=== PATIENT | female | born 1950 | race Caucasian/White ===

== ENCOUNTER → 2017-08-31 | Outpatient (CLI) | payer MEDICARE, OTHER ==
[~2017-08-31] MED LIST: AMITRIPTYLINE H50 M1 PO; CALCIUM 500500 M2 PO; FERROUS SU325 MG/TAB PO; FOLIC ACID PO; LISINOPRIL PO; MULTIPLE VITAMI1 CAP PO; NAPROXEN EC500 MG PO; PERCOCET 325 MG1 TA2 PO; PRILOSEC 20MG20 MG PO; SYNTHROID0.088 MG/T PO; SYNTHROID0.1 MG PO; TYLENOL 500MG500 MG PO; VITAMIN C500 MG PO; VITAMIN E1000 U/CAP PO; ZOCOR80 MG PO
== END ==
LOC: MC.RAD 08-26 09:00
DX: Z12.31 Encounter for screening mammogram for malignant neoplasm of breast (principal)

== ENCOUNTER 2017-10-08 05:29 | Emergency (ER) | payer MEDICARE, OTHER ==
[2008-11-01 06:23] VITALS: BP 110/63
[2017-10-08 05:38] VITALS: TEMP 97.6
[2017-10-08] MEDS ORDERED: FERRO-TIME325 MG PO (05:57)
[2017-10-08] MEDS ORDERED: EPA FISH OIL1 SGL PO (05:57)
[2017-10-08] MEDS ORDERED: NORCO 325 MG-51 TAB PO (07:41)
[2017-10-08 08:13] VITALS: BP 142/94; PULSE 87
== END 2017-10-08 08:19 | disposition home or self-care (01) ==
LOC: COL.ER 05:29
DX: S82.141A Displaced bicondylar fracture of right tibia, initial encounter for closed fracture (principal); S82.831A Other fracture of upper and lower end of right fibula, initial encounter for closed fracture; Z96.641 Presence of right artificial hip joint; W18.30XA Fall on same level, unspecified, initial encounter; X50.1XXA Overexertion from prolonged static or awkward postures, initial encounter; Y92.009 Unspecified place in unspecified non-institutional (private) residence as the place of occurrence of the external cause; I10 Essential (primary) hypertension; E03.9 Hypothyroidism, unspecified; E78.5 Hyperlipidemia, unspecified; K21.9 Gastro-esophageal reflux disease without esophagitis
CPT/HCPCS: J1170; J1885; J2765; L1830

== ENCOUNTER → 2018-01-21 | Outpatient (CLI) | payer MEDICARE, OTHER ==
[~2018-01-21] MED LIST changes: +EPA FISH OIL1 SGL PO; +FERRO-TIME325 MG PO; +NORCO 325 MG-51 TAB PO
== END ==
LOC: COL.RAD 16:19
DX: K52.89 Other specified noninfective gastroenteritis and colitis (principal); K63.89 Other specified diseases of intestine; S33.130A Subluxation of L3/L4 lumbar vertebra, initial encounter; S33.140A Subluxation of L4/L5 lumbar vertebra, initial encounter; K44.9 Diaphragmatic hernia without obstruction or gangrene; Z98.890 Other specified postprocedural states; Z96.641 Presence of right artificial hip joint
CPT/HCPCS: Q9967

== ENCOUNTER 2018-07-08 16:22 | Inpatient (IN) | payer MEDICARE, OTHER ==
[~2018-07-08] VITALS: Ht 170.2 cm; Wt 81.7 kg
[2018-07-14] VITALS (8 sets, daily range): BP systolic 98–136; BP diastolic 46–71; PULSE 72–94; TEMP 97.8–98.5
[2018-07-14] MEDS ORDERED: PRIL40 PO (10:41)
[2018-07-14] MEDS ORDERED: PERCOCET 325 MG1 TA3 PO (10:42)
[2018-07-14] MEDS ORDERED: CALCIUM CARBON650 M2 PO (10:43)
[2018-07-14] MEDS ORDERED: IRON 27 MG PO (10:44)
[2018-07-14] MEDS ORDERED: HAIRSKINNAILS PO (10:44)
[2018-07-14] MEDS ORDERED: ELDERBERRY PO (10:45)
[2018-07-14] MEDS ORDERED: ALEVE 220MG220 MG PO (10:46)
[2018-07-14] MEDS ORDERED: PHENERGAN 25 TA25 MG PO (10:47)
[2018-07-15] VITALS (7 sets, daily range): BP systolic 83–103; BP diastolic 43–58; PULSE 80–92; TEMP 97.5–98.5
[2018-07-15 06:19] LABS: MEAN CELL VOLUME 90 fl (80.0-100.0); MEAN CORPUSCULAR HGB CONC 32 g/dl (33.0-37.0); MEAN PLATELET VOLUME 11.2 fl (7.4-10.4); PLATELET COUNT 177 K/mm3 (130-400); RED BLOOD COUNT 3.05 M/mm3 (4.10-5.30); REDCELL DISTRIBUTION WIDTH-CV 14.6 % (11.5-14.5)
[2018-07-15 06:24] LABS: CALCIUM 8.7 mg/dL (8.4-10.2); CREATININE, serum 1.22 mg/dL (0.52-1.25); POTASSIUM 4.9 mmol/L (3.4-5.0)
[2018-07-15 06:27] LABS: HEMOGLOBIN 8.8 g/dl (12.5-16.0); MEAN CORPUSCULAR HEMOGLOBIN 29 pg (27.0-31.0)
[2018-07-15 06:28] LABS: HEMATOCRIT 27.4 % (37.0-47.0)
[2018-07-15 07:54] LABS: BAND 34 % (0-10); LYMPHOCYTE 3 % (20.0-51.0); NEUTROPHILS 58 % (42.0-75.2); PLATELET ESTIMATE NORMAL (NORMAL)
[2018-07-16 03:09] VITALS: BP 104/47; PULSE 93; TEMP 97.7
[2018-07-16 05:51] LABS: BASO % 0.3 % (0.0-2.0); CALCIUM 8.3 mg/dL (8.4-10.2); CREATININE, serum 1.02 mg/dL (0.52-1.25); EOS # 0.3 (0.0-0.7); EOS % 2.9 % (0-4.0); GRAN # 8.8 (1.4-6.5); GRAN % 84.3 % (42.2-75.2); LYMPH # 0.7 (1.2-3.4); LYMPH % 6.6 % (20.0-51.0); MEAN CELL VOLUME 90 fl (80.0-100.0); MEAN CORPUSCULAR HGB CONC 32 g/dl (33.0-37.0); MONO # 0.6 (0.1-0.6); MONO % 5.6 % (1.7-9.3); PLATELET COUNT 128 K/mm3 (130-400); POTASSIUM 4.1 mmol/L (3.4-5.0); RED BLOOD COUNT 2.74 M/mm3 (4.10-5.30); REDCELL DISTRIBUTION WIDTH-CV 14.9 % (11.5-14.5)
[2018-07-16 05:52] LABS: HEMATOCRIT 24.6 % (37.0-47.0); HEMOGLOBIN 7.8 g/dl (12.5-16.0); MEAN CORPUSCULAR HEMOGLOBIN 28 pg (27.0-31.0)
[2018-07-16 07:47] VITALS: BP 101/59; PULSE 91; TEMP 97.4
[2018-07-16 12:06] VITALS: BP 108/56; PULSE 89; TEMP 97.6
[2018-07-16 16:09] VITALS: BP 117/67; PULSE 91; TEMP 98
[2018-07-16 19:58] VITALS: BP 113/55; PULSE 97; TEMP 97.7
[2018-07-17] VITALS (7 sets, daily range): BP systolic 107–130; BP diastolic 48–61; PULSE 61–95; TEMP 97.5–98.5
[2018-07-17 06:06] LABS: HEMATOCRIT 24.3 % (37.0-47.0); HEMOGLOBIN 7.8 g/dl (12.5-16.0)
[2018-07-18 04:32] VITALS: BP 108/48; PULSE 72; TEMP 98.5
[2018-07-18 06:12] LABS: HEMATOCRIT 26.1 % (37.0-47.0); HEMOGLOBIN 8.3 g/dl (12.5-16.0)
[2018-07-18] MEDS ORDERED: LEVAQUIN 5500 MG/TA1 PO (07:58)
[2018-07-18] MEDS ORDERED: ROXICODONE 55 MG/TAB PO (07:58)
[2018-07-18 08:49] VITALS: BP 127/67; PULSE 93; TEMP 97.9
== END 2018-07-18 11:00 | disposition home or self-care (01) | DRG 330 ==
LOC: INPTSU 07-14 09:20 → SURG 07-14 09:20
PROVIDERS: Surgery
PROC: 8E0W4CZ Robotic Assisted Procedure of Trunk Region, Percutaneous Endoscopic Approach (ICD-10-PCS; 2018-07-14)
PROC: 0DTN4ZZ Resection of Sigmoid Colon, Percutaneous Endoscopic Approach (ICD-10-PCS; principal; 2018-07-14 11:30)
DX: K57.20 Diverticulitis of large intestine with perforation and abscess without bleeding (principal); K31.1 Adult hypertrophic pyloric stenosis; I10 Essential (primary) hypertension; E78.5 Hyperlipidemia, unspecified
CPT/HCPCS: A4314; A9284; J0690; J1100; J1170; J1650; J1956; J2175; J2405; J2704; J3010; J7120

== ENCOUNTER → 2018-09-20 | Outpatient (CLI) | payer MEDICARE, OTHER ==
[~2018-09-20] MED LIST changes: +ALEVE 220MG220 MG PO; +CALCIUM CARBON650 M2 PO; +ELDERBERRY PO; +HAIRSKINNAILS PO; +IRON 27 MG PO; +LEVAQUIN 5500 MG/TA1 PO; +PERCOCET 325 MG1 TA3 PO; +PHENERGAN 25 TA25 MG PO; +PRIL40 PO; +ROXICODONE 55 MG/TAB PO
== END ==
LOC: MC.RAD 10:26
DX: Z12.31 Encounter for screening mammogram for malignant neoplasm of breast (principal)

== ENCOUNTER → 2019-10-11 | Outpatient (CLI) | payer MEDICARE, OTHER | LOC: MC.RAD 10-10 10:45 | DX: Z12.31 Encounter for screening mammogram for malignant neoplasm of breast (principal) ==

== ENCOUNTER → 2020-10-12 | Outpatient (CLI) | payer MEDICARE | LOC: MC.RAD 10:24 | DX: Z12.31 Encounter for screening mammogram for malignant neoplasm of breast (principal) ==

== ENCOUNTER → 2021-08-08 | Outpatient (CLI) | payer MEDICARE, OTHER | LOC: COL.RAD 08:39 | DX: K82.8 Other specified diseases of gallbladder (principal) ==